=== PATIENT | male | born 1945 | race Caucasian/White ===

== ENCOUNTER 2022-02-17 14:32 | Emergency (ER) | payer MEDICARE ==
[~2022-02-17] VITALS: Ht 182.9 cm; Wt 74.8 kg
[2022-02-17 14:32] VITALS: BP 160/85
[2022-02-17] MEDS ORDERED: NS 1000ML 1,000 ML IV STA (15:19)
[2022-02-17] MEDS ORDERED: THIAMINE HCL IV STA (15:19)
[2022-02-17] MEDS ORDERED: FOLIC ACID IV ONE (15:30)
[2022-02-17] MEDS ORDERED: INFUVITE ADULT IV ONE ×2 (15:30→16:22)
[2022-02-17 15:41] LABS: EOSINOPHIL % 0.3 % (0.0-5.0); LYMPHOCYTES # 1.57 10^3/uL1 (1.0-4.8); LYMPHOCYTES % 13.4 % (24.0-44.0); MEAN CORP HGB 31.3 pg (26-34); MONOCYTES # 1.4 10^3/uL (0.3-0.8); MONOCYTES % 11.5 % (5.0-12.0); NEUTROPHIL # 8.8 10^3/uL (1.8-7.7); NEUTROPHILS % 74.5 % (41.0-85.0); PLATELET COUNT 295 10^3/uL (150-400); RED CELL DISTRIBUTION WIDTH 13.8 % (11.5-14.5)
[2022-02-17] MEDS ORDERED: NS 1000ML 1,000 ML ONE (15:41)
[2022-02-17] MEDS ORDERED: THIAMINE HCL ONE (15:42)
--- NOTE | 2022-02-17 15:45 | PCM.EKG ---
[facility] Test Date: 2022-02-17 Test Time: 15:33:53 Pat Name: TRIPP BERMUDEZ Department: Patient ID: [id number] Room: Gender: M Pattern Hand: JASPER : 1945 Requested By: EL JEREZ Order Number: [id number] Reading MD: Frank HOOK Measurements Intervals [place] Rate: 82 P: 52 MT: 141 QRS: -9 QRSD: 95 T: 52 QT: 418 QTc: 489 Interpretive Statements Sinus rhythm Minimal ST elevation, anterior leads Borderline prolonged QT interval No previous ECG available for comparison Electronically Signed On 02-25-2022 7:41:04 [employer] by Frank HOOK Please click the below link to view image of tracing.
--- NOTE | 2022-02-17 16:01 | DIREP ---
PROCEDURE:CT HEAD OR BRAIN W/O CONTRAST COMPARISON:None. INDICATIONS:fall, head injury TECHNIQUE:CT images were created without intravenous contrast. FINDINGS: VENTRICLES:The ventricles are normal in size and configuration. CEREBRUM:Normal cerebral morphology with appropriate persaud white matter differentiation. CEREBELLUM:Negative. BRAINSTEM:Negative. BASAL CISTERNS:Negative. HEMORRHAGE (Vol L*W*H*.52):No MASS LESION:No ACUTE INFARCT:No SKULL:Normal. SINUSES:Normal. OTHER:None CONCLUSION:No acute abnormalities. Dictated by: Gerardo Weaver M.D. on 02/17/2022 at 03:59 PM
--- NOTE | 2022-02-17 16:13 | NUR ---
CRITICAL LAB D-DIMER IS 4.78, EDP NOTIFIED.
--- NOTE | 2022-02-17 16:20 | DIREP ---
PROCEDURE:XRAY PELVIS 1-2 VWS COMPARISON:None. INDICATIONS:pain FINDINGS: BONES:Normal. JOINTS:Mild bilateral femoral acetabular osteoarthritis. SOFT TISSUES:Normal. OTHER:No additional findings. CONCLUSION:Mild hip osteoarthritis Dictated by: Kevin Castano DO on 02/17/2022 at 04:16 PM
--- NOTE | 2022-02-17 16:21 | DIREP ---
PROCEDURE:CHEST 1 VIEW COMPARISON:None. INDICATIONS:ALOC, SOB FINDINGS: LUNGS/PLEURA:No significant pulmonary parenchymal abnormalities. No effusions. VASCULATURE:Normal. Unremarkable pulmonary vasculature. CARDIAC:Normal. No cardiac silhouette abnormality or cardiomegaly. MEDIASTINUM:Normal. No visible mass or adenopathy. BONES:Normal. No fracture or visible bony lesion. OTHER:Negative. CONCLUSION:Normal examination. Dictated by: Kevin Castano DO on 02/17/2022 at 04:19 PM
[2022-02-17 16:24] LABS: CARBON DIOXIDE 23.1 mmol/L (20.0-32); GLUCOSE 114 mg/dL (70-110)
--- NOTE | 2022-02-17 16:27 | NUR ---
CRITICAL LAB CK IS 1691, TROPONIN IS 944, AND CKMB IS 21.9, EDP NOTIFIED.
[2022-02-17 16:54] LABS: BILIRUBIN,URINE 1+ (NEGATIVE); UROBILINOGEN,URINE 0.2 E.U./dL (0.2)
--- NOTE | 2022-02-17 17:12 | NUR ---
TRANSFER PT HAS BEEN ACCEPTED AT [facility] BY DR KENNEDY AT 5417.
--- NOTE | 2022-02-17 17:47 | ER.PDOC ---
General Chief Complaint: Requesting Medical Care Stated Complaint: AMS, WEAKNESS Time seen by MD: 14:35 Source: patient, EMS Exam Limitations: clinical condition History of Present Illness Initial Comments pt is a very poor historian about his clinical condition tho oriented x3 at this time. Pt is slow to respond to questions and requires repetitive questioning [place] [address] [place] bystanders who called EMS. He had fallen and hit his head but denies LOC. He does not know how he fell. He reportedly was on the side of the freeway [place] [address] to [place]. Had not eaten for 4days. Admits to drinking. He was reportely defecating and urinating in his car. He does not elaborate on his medical condition any further than saying he was weak. He also states that his pelvic bone chronically hurts. He says he did [employer] to make a living until just before 4 days ago. He has no home at this time. Severity: severe (weakness) Context: falling, head injury (w/ 3 months) Decreased Ability to Stand: weak, cannot walk, falling Usually: orientedx3 (but amnestic about circumstances around his fall and head injury) Associated Symptoms: altered mental status, decreased responsiveness Past Medical History Medical History: diabetes Surgical History: neck Social History Alcohol Use: none Drug Use: none Review of Systems Constitutional: malaise, weakness, other (unreliable review) Respiratory: no symptoms reported Cardiovascular: no symptoms reported Psychiatric/Neurological: see HPI Physical Exam General Appearance: no distress, lethargic, other (dried feces on his cloths, very poor personal hygiene, cachectic, disheveled) HEENT: EOM's intact, PERRL Results/Orders Results/Orders Orders - EL JEREZ MD Cbc With Auto Diff (02/17/22 15:19) Comprehensive Metabolic Panel (02/17/22 15:19) Creatine Kinase (02/17/22 15:19) PT (02/17/22 15:19) Xr Chest 1v (02/17/22 15:19) Partial Thromboplastin Time. (02/17/22 15:19) Urinalysis (02/17/22 15:19) EKG (02/17/22 15:19) Ct Head Wo Contrast (02/17/22 15:19) Rt O2 Per Hour (02/17/22 15:19) Troponin I High Sensitivity (02/17/22 15:19) Xr Pelvis (02/17/22 15:19) Creatine Kinase Mb (02/17/22 15:19) Alcohol(Ml) (02/17/22 15:19) Acetaminophen(Ml) (02/17/22 15:19) Salicylate(Ml) (02/17/22 15:19) Drug Scrn Med W Confirmation (02/17/22 15:19) Lactic Acid(Ml) (02/17/22 15:19) C-Reactive Protein (02/17/22 15:19) Lactate Dehydrogenase (02/17/22 15:19) D-Dimer (02/17/22 15:19) Folic Acid (Folic Acid) (02/17/22 15:30) Thiamine Hcl (Thiamine Hcl) (02/17/22 15:19) Multivit Infusn,Adult 4,Vit K (Infuvite (02/17/22 15:30) 0.9 % Sodium Chloride (Ns 1000ml) (02/17/22 15:19) Thiamine Hcl (Thiamine Hcl) (02/17/22 15:42) Multivit Infusn,Adult 4,Vit K (Infuvite (02/17/22 16:22) Urine Culture (02/17/22 16:45) Vital Signs Date Time Temp Pulse Resp B/P (MAP) Pulse Ox O2 Delivery O2 Flow Rate FiO2 02/17/22 14:32 97.4 87 18 94 02/17/22 14:32 97.4 87 18 160/85 (110) 94 Room Air* 0 21 02/17/22 14:32 97.4 87 18 Administered Medications Medications (Trade) Dose Ordered Sig/Kit Route PRN Reason Start Time Stop Time Status Last Admin Dose Admin Folic Acid (Folic Acid) 1 mg OT ONCE IV 02/17/22 15:30 02/17/22 15:31 DC 02/17/22 16:28 1 MG Sodium Chloride 1,000 ml @ 0 mls/hr Q0M STAT IV 02/17/22 15:19 02/17/22 15:20 UNV 02/17/22 16:28 1,200 MLS/HR Thiamine HCl (Thiamine HCl) 100 mg STAT STAT IV 02/17/22 15:19 02/17/22 15:27 DC 02/17/22 16:28 100 MG Laboratory Tests Test 02/17/22 15:34 02/17/22 16:45 White Blood Count 11.7 10^3/uL (4.5-11.0) H Red Blood Count 3.99 10^6/uL (4.50-5.90) L Hemoglobin 12.5 g/dL (13.9-16.3) L Hematocrit 36.3 % (37.0-53.0) L Mean Corpuscular Volume 91.0 fL (78-100) Mean Corpuscular Hemoglobin 31.3 pg (26-34) Mean Corpuscular Hemoglobin Concent 34.4 g/dL (33-36.5) Red Cell Distribution Width 13.8 % (11.5-14.5) Platelet Count 295 10^3/uL (150-400) Mean Platelet Volume 10.1 fL (7.8-11.0) Neutrophils (%) (Auto) 74.5 % (41.0-85.0) Lymphocytes (%) (Auto) 13.4 % (24.0-44.0) L Monocytes (%) (Auto) 11.5 % (5.0-12.0) Neutrophils # (Auto) 8.8 10^3/uL (1.8-7.7) H Lymphocytes # (Auto) 1.57 10^3/uL1 (1.0-4.8) Monocytes # (Auto) 1.4 10^3/uL (0.3-0.8) H Absolute Immature Granulocyte (auto 0.03 10^3 u/L (0-2) Absolute Eosinophils (auto) 0.0 10^3/uL (0.0-0.2) Immature Granulocytes % 0.30 % (0.00-0.50) Eosinophils % 0.3 % (0.0-5.0) Basophils % 0.0 % (0.0-0.2) Basophils # 0.0 10^3/uL (0.0-0.1) Prothrombin Time 10.2 SEC (9.1-11.5) Prothrombin Time INR (Non-Therap) 1.0 Activated Partial Thromboplast Time 23.9 SEC (22.5-33.1) D-Dimer 4.78 mg/L (0.19-0.49) *H Sodium Level 137 mmol/L (132-145) Potassium Level 3.2 mmol/L (3.6-5.2) L Chloride Level 102.0 mmol/L (96-109) Carbon Dioxide Level 23.1 mmol/L (20.0-32) Anion Gap 15.1 Blood Urea Nitrogen 61 mg/dL (7-18) H Creatinine 1.74 mg/dL (0.59-1.40) H Estimated GFR () 46.3 (>/=60) Est GFR (CKD-EPI)(Non-Afr [place]er) 38.2 (>/=60) BUN/Creatinine Ratio 35.0 Glucose Level 114 mg/dL (70-110) H Lactic Acid Level 1.1 mmol/L (0.5-1.9) Calcium Level 8.2 mg/dL (8.4-10.5) L Total Bilirubin 1.2 mg/dL (0.2-1.0) H Aspartate Amino Transferase (AST) 80 U/L (0-35) H Alanine Aminotransferase (ALT) 67 U/L (12-78) Alkaline Phosphatase 76 U/L (50-136) Lactate Dehydrogenase 285 U/L (85-227) H Total Creatine Kinase 1691 U/L (39-308) *H Creatine Kinase MB 21.9 ng/mL (0.5-3.6) *H Troponin I High Sensitivity 944 ng/L (0-75) *H C-Reactive Protein 3.35 mg/dL (0.00-5.00) Total Protein 5.8 g/dL (6.4-8.2) L Albumin 2.7 g/dL (3.4-5.0) L Globulin 3.1 Albumin/Globulin Ratio 0.870 Salicylates Level < 2.8 mg/dL (2.8-20.0) L Acetaminophen Level 2 ug/mL (10-30) L Serum Alcohol < 3 mg/dL (0-50) Urine Collection Type RANDOM Urine Color YELLOW Urine Appearance HAZY Urine Bilirubin 1+ (NEGATIVE) H Urine Ictotest NEGATIVE (NEGATIVE) Urine Ketones 1+ (NEGATIVE) H Urine Specific [place] 1.025 (1.005-1.030) Urine pH 5.5 (4.5-8.0) Urine Protein 1+ (NEGATIVE) H Urine Urobilinogen 0.2 E.U./dL (0.2) Urine Nitrate NEGATIVE (NEGATIVE) Urine Leukocyte Esterase NEGATIVE (NEGATIVE) Urine Glucose (Auto)(UA) NEGATIVE (NEGATIVE) Urine Blood 2+ (NEGATIVE) H Urine RBC 0-2 RBC/HPF (NONE SEEN) Urine WBC 0-2 WBC/HPF (0-2) Urine Squamous Epithelial Cells FEW (<=FEW) Urine Bacteria FEW (NONE SEEN) H Urine Hyaline Casts MODERATE (NONE SEEN) A Urine Coarse Granular Casts FEW (NONE SEEN) A Urine Mucus FEW (NONE SEEN) Urine Opiates Screen NEGATIVE (c/o300ng/mL) Urine Methadone Screen NEGATIVE (c/o300ng/mL) Urine Barbiturates Screen NEGATIVE (c/o200ng/mL) Urine Phencyclidine Screen NEGATIVE (c/o 25ng/mL) Ur Amphetamine/Methamphetamine NEGATIVE (ae4803ea/mL) Urine MDMA Screen (Ecstasy) NEGATIVE (c/o300ng/mL) Urine Benzodiazepines Screen NEGATIVE (c/o200ng/mL) Urine Cocaine Metabolite Screen NEGATIVE (c/o300ng/mL) Ur Tetrahydrocannabinol (THC) Scrn NEGATIVE (c/o 50ng/mL) Progress Progress ddx: cva, mi, sepsis, electrolyte imbal, EKG: NSR, no evidence of [place] CT head no bleed Trop >900 ARF ER DEPART Departure Time of Disposition: 18:06 Disposition: [facility] Impression: Primary Impression: NSTEMI (non-ST elevated myocardial infarction) Additional Impressions: Rhabdomyolysis ARF (acute renal failure) Altered mental state General weakness Condition: Critical (ERASED) If Transfer, List PT Destinati: [facility] accepts transfer Referrals: PCP,UNKNOWN (PCP) PRIMARY CARE PROVIDER Problem Qualifiers EL JEREZ MD Feb 17, 2022 17:47
== END 2022-02-17 18:12 | disposition critical access hospital (66) ==
LOC: ER 14:32
DX: I21.4 Non-ST elevation (NSTEMI) myocardial infarction (principal); M62.82 Rhabdomyolysis; N17.9 Acute kidney failure, unspecified; R53.1 Weakness; E11.9 Type 2 diabetes mellitus without complications; Z98.890 Other specified postprocedural states
CPT/HCPCS: 99285; 96374; 70450; 71045; 96361; 96375; 87086; 72170; 80053; 85025; 36415; 85379; 84484; 83605; 80307; 82553; 80299 ×2; 82077; 81001; 82550; 83615; 85610; 85730; 86140; 93005; J7030; 83874; J3411